=== PATIENT | female | born 1945 | race Caucasian/White ===

== ENCOUNTER → 2017-07-27 | Outpatient (CLI) | payer OTHER ==
[~2017-07-27] MED LIST: ADULT LOW DOSE81 MG PO; ADVAIR 250-501 EACH IH; ADVAIR HFA 1112 UNIT INH; ALDACTONE25 MG PO; APAP500 PO; CIPRO250 M1 PO; COUMADIN 2 MG TA2 M1 PO; COUMADIN 4 MG TA4 M1 PO; DIOVAN320 MG PO; DUONEB 2.5-0.5 M3 ML; FENOFIBRATE134 MG PO; FENOFIBRATE160 MG PO; FUROSEMIDE 40 M40 M1 PO; K-DUR 20 MEQ T20 MEQ PO; LANOXIN 0.250.25 MG PO; PREDNISONE 2.52.5 M1 PO; PREDNISONE OR; PROAIR HFA8.5 GM IH; SINGULAIR 10 MG10 M1 PO; THEOPHYLLINE; THEOPHYLLINE E200 M1 PO; TOPROL XL25 MG PO; TYLENOL EX-STR500 M2 PO; VICODIN 5-5001 EACH PO
== END ==
LOC: PET 09:16
DX: R91.1 Solitary pulmonary nodule (principal); R59.0 Localized enlarged lymph nodes

== ENCOUNTER → 2017-11-12 | Outpatient (CLI) | payer OTHER ==
[~2017-11-12] MED LIST changes: +CENTRUM SILVER1 EAC4 PO; +LEVAQUIN 750 M750 MG PO; +LEVOXYL75 MCG PO; +PREDNISONE 10 M10 MG PO; -PREDNISONE OR; +PROBIOTIC1 EAC1 PO; +PROTONIX 20 MG20 M1 PO; +SPIRIVA INH
== END ==
LOC: CAT 11:17
DX: R91.8 Other nonspecific abnormal finding of lung field (principal)

== ENCOUNTER 2018-02-11 13:21 | Inpatient (IN) | payer OTHER ==
[~2018-02-11] VITALS: Ht 154.9 cm; Wt 64.0 kg
--- NOTE | ~2018-02-11 | HC ---
[facility] [place] [address] CONSULTATION Name: WALT CORLEY Room #: 453-P ADM IN M.R.#: [id number] Admission: 02/11/18 Attend Phys: Víctor Tanner MD Discharge: Date of : 41 Report #: [id number] THIS REPORT FOR: //name// CC: DR EILEEN Chen REASON FOR CONSULTATION: Thrombocytopenia. HISTORY OF PRESENT ILLNESS: The patient is a very pleasant 73-year-old female. originally from [place], lives here in [place] for the last 35-40 years, who last week was being treated for exacerbation of COPD, maybe, with either cefdinir or ciprofloxacin, had some diarrhea. I believe yesterday or 2 days ago, she was in her doctor's office, her right leg was thought to be more red and swollen. They were worried about DVT. Here, her ultrasound was negative for clot. Her CT angiogram was negative for clot, though it did show decrease in size of previously noted pulmonary nodules, and she was begun on antibiotics. Since then, her thinks her leg looked slightly better. We have noted that her platelets were 107 yesterday. She has not been aware of previous knowledge of having low platelet counts. The patient has had some chills, did have the diarrhea, did have the shortness of air. Denies any definite fever, any headache other than she had one last night. No mouth sores. No chest pain, no new leg swelling except for the right leg. Did have some slight abdominal pain due to gaseousness. She feels like the diarrhea may have resolved, was not aware of any blood in the urine or stool. No dysuria. She is not aware of any lumps or bumps in terms of lymphadenopathy or masses. Her family, she says they are healthy. PAST MEDICAL HISTORY: Past history is notable for history of hypertension, skin melanoma in 1991 in the forehead, broken arm at age 28 on the right. CHF with an EF of 40% and a pacemaker in place with mitral valve insufficiency. Also, history of asthma, DVT in the right leg about 10-12 years ago. History of tobacco use, history of COPD, history of cataracts, history of carpal tunnel surgery in the past I believe. History of pacemaker for syncopal episode and bradycardia, left bundle branch block in . History of right knee replacement, left hip replacement. FAMILY HISTORY: Mother had breast cancer when she is 80. It sounds like, maybe, a sibling may have had some psychiatric issues. She has 3 children, alive and well. SOCIAL HISTORY: She is retired. 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 Her is in attendance. She has a history of smoking. No significant alcohol, no street drugs. The patient's [facility] [address] [place] [address] CONSULTATION Name: WALT CORLEY Room #: 453-P [facility] IN M.R.#: [id number] Admission: 02/11/18 Attend Phys: Víctor Tanner MD Discharge: Date of : 41 Report #: [id number] hobby is guarding. The patient reports current daily smoker. MEDICATIONS: At this time include Warfarin 2 mg Sunday, Sunday, Sunday. Lactobacillus acidophilus 1 cap daily, multivitamins with minerals 1 tab daily, prednisone 10 daily, theophylline 200 mg daily, spironolactone 25 daily, furosemide 40 daily, budesonide 0.5 mg respiratory therapy b.i.d., pantoprazole 20 daily, levothyroxine 75 mcg daily, fenofibrate 160 mg daily, metoprolol 25 b.i.d. Montelukast 10 mg at bedtime. Digoxin 0.125 at bedtime. Warfarin 4 mg on Sunday, Sunday, Sunday, . Ipratropium, albuterol inhaler q.i.d., hydrocodone p.r.n., Tylenol p.r.n., levofloxacin daily, vancomycin. LABORATORY DATA: This admit includes BUN of 19, creatinine of 0.9. Liver functions normal including AST, ALT, total bili. Albumin was 3.3. INR was 2.6, with a protime at 26, APTT 42.5, fibrinogen 548. D-dimer 0.66. White count 19.9, hemoglobin 15.6, MCV of 91, RDW of 16, platelet counts 107. Note that back in 2010, it was 172. Differential shows absolute neutrophil count yesterday of 18,000. Note that she had a hypercoag workup in 2010 that appeared to be unremarkable. UA not done this admit. RADIOLOGIC STUDIES: Include the ultrasound of the lower extremity, unilateral in the right, showing no signs or clot. CTA PE protocol synopsis shows nothing to demonstrate pulmonary embolism or dissection, does show the bilateral pulmonary nodules, which are suspicious for pulmonary malignancy, but have undergone PET evaluation and are slightly smaller than on CT from 3 months ago. PHYSICAL EXAMINATION: GENERAL: The patient appears her stated age. VITAL SIGNS: Height is 5 feet 1, which is 154.9 cm. Weight is 141 pounds, which is 63.96 kilograms. Blood pressure is 137/70, O2 sat 92%. on the left arm, respirations 16, pulse 83, temperature 97.7, afebrile. MOOD: She is pleasant and conversant. NEUROLOGIC: Face is symmetrical. Speech and thought pattern appear to be normal. LYMPHATICS: No enlarged lymph nodes in the supraclavicular, cervical, axillary or inguinal region. LUNGS: Slightly distant. There may be some soft rhonchi, but I do not hear very much. HEART: Appears regular rate. ABDOMEN: Slightly obese, slightly gassy, not really tender. EXTREMITIES: Without clubbing, cyanosis. Note the right arm has quite a few more ecchymosis, which may be from the combination of prednisone and past DVT. There also may be some slight petechiae. Left leg looks quite a bit different. ASSESSMENT AND PLAN: 1. Thrombocytopenia, suspect may be related to recent sepsis or antibiotic from last week. We will order platelet count for today and tomorrow and follow [facility] [address] [place] [address] CONSULTATION Name: WALT CORLEY Room #: 453-P ADM IN [facility].#: [id number] Admission: 02/11/18 Attend Phys: Víctor Tanner MD Discharge: Date of : 41 Report #: [id number] serially. D-dimer is slightly up likely related to underlying infection and also her anticoagulation. She does not look toxic at this time. We will continue monitoring. If further decline, would consider iron, B12, folate, thyroid levels as well as platelet antibodies. 2. Right leg cellulitis. Continue vancomycin and levofloxacin. The patient's thinks it looks better today. 3. History of right leg deep venous thrombosis 10 years ago, negative CTA angiogram. Continue Coumadin current anticoagulant. 4. Lung nodules. Defer to Dr. Obey Mast. They appear slightly smaller. 5. Chronic obstructive pulmonary disease exacerbation. Continue Singulair, Aerosols prednisone, theophylline. 6. Cardiomyopathy. Continue with defibrillator. Continues on digoxin. 7. History of melanoma, not recurrent. 8. Hypertension, metoprolol, Aldactone, furosemide. <ELECTRONICALLY SIGNED> By: Nilo Lazo MD 02/13/18 [id number] Nilo Lazo MD /nt
[~2018-02-11 13:21] MED LIST changes: -CENTRUM SILVER1 EAC4 PO; -LEVAQUIN 750 M750 MG PO; -LEVOXYL75 MCG PO; -PROBIOTIC1 EAC1 PO; -PROTONIX 20 MG20 M1 PO; -SPIRIVA INH
[2018-02-11 13:27] VITALS: BP 116/78
[2018-02-11] MEDS ORDERED: CENTRUM SILVER1 EAC4 PO (13:29)
[2018-02-11] MEDS ORDERED: LEVOXYL75 MCG PO (13:30)
[2018-02-11] MEDS ORDERED: SPIRIVA INH (13:31)
[2018-02-11 14:16] LABS: ABSOLUTE NEUTROPHILS 18.5 thou/uL (1.4-8.2); BASOPHILS 0.4 % (0.0-2.0); EOSINOPHILS 0.1 % (0.0-3.0); HEMATOCRIT 47.5 % (37.0-47.0); HEMOGLOBIN 15.6 gm/dL (12.0-15.0); LYMPHOCYTES 2.6 % (24.0-44.0); MCHC 32.9 g/dL (28.0-37.0); MONOCYTES 2.8 % (1.0-8.0); PLATELET COUNT 107 thou/uL (150-400); POLYS 94.1 % (36.0-66.0); RBC 5.22 mil/uL (4.20-5.00); WBC 19.6 thou/uL (4.0-11.0)
[2018-02-11 14:23] LABS: CALCIUM 9.6 mg/dL (8.5-10.1); CREATININE 0.9 mg/dL (0.6-1.0); POTASSIUM 4.1 mmol/L (3.5-5.1)
[2018-02-11 14:27] LABS: INR 2.6
[2018-02-11 14:28] LABS: ALBUMIN 3.3 g/dL (3.4-5.0); TOTAL BILIRUBIN 0.6 mg/dL (<0.1-1.0); TOTAL PROTEIN 6.9 g/dL (6.4-8.2)
[2018-02-11 15:08] LABS: D-DIMER 0.66 ug/mLFEU (0.19-0.50)
[2018-02-11 15:13] LABS: FIBRINOGEN 548.2 mg/dL (210-360)
[2018-02-11 16:17] VITALS: BP 116/78
[2018-02-11 20:00] VITALS: BP 129/72
[2018-02-12 05:09] VITALS: BP 123/82
[2018-02-12 07:23] VITALS: BP 135/70
[2018-02-12 09:49] LABS: ABSOLUTE NEUTROPHILS 10.2 thou/uL (1.4-8.2); BASOPHILS 0.4 % (0.0-2.0); EOSINOPHILS 1.3 % (0.0-3.0); HEMATOCRIT 46.2 % (37.0-47.0); HEMOGLOBIN 15.1 gm/dL (12.0-15.0); LYMPHOCYTES 6.1 % (24.0-44.0); MCH 30.1 pg (26.0-34.0); MCHC 32.8 g/dL (28.0-37.0); MCV 91.9 fL (80.0-100.0); MONOCYTES 4.1 % (1.0-8.0); PLATELET COUNT 108 thou/uL (150-400); POLYS 88.1 % (36.0-66.0); RBC 5.02 mil/uL (4.20-5.00); RDW 16.4 % (10.5-14.5); WBC 11.6 thou/uL (4.0-11.0)
[2018-02-12 15:24] VITALS: BP 113/72
[2018-02-12 20:31] VITALS: BP 140/79
[2018-02-13 00:35] VITALS: BP 141/82
[2018-02-13 03:59] VITALS: BP 144/74
[2018-02-13 06:11] LABS: ABSOLUTE NEUTROPHILS 6.3 thou/uL (1.4-8.2); BASOPHILS 0.5 % (0.0-2.0); EOSINOPHILS 2.6 % (0.0-3.0); HEMATOCRIT 41.3 % (37.0-47.0); HEMOGLOBIN 13.8 gm/dL (12.0-15.0); LYMPHOCYTES 12.8 % (24.0-44.0); MCH 30.2 pg (26.0-34.0); MCHC 33.4 g/dL (28.0-37.0); MCV 90.5 fL (80.0-100.0); MONOCYTES 6.8 % (1.0-8.0); PLATELET COUNT 118 thou/uL (150-400); POLYS 77.3 % (36.0-66.0); RBC 4.56 mil/uL (4.20-5.00); RDW 15.8 % (10.5-14.5); WBC 8.2 thou/uL (4.0-11.0)
[2018-02-13 06:26] LABS: INR 3.2; PROTIME 31.8 Seconds (9.3-11.4)
[2018-02-13 07:45] VITALS: BP 133/87
[2018-02-13] MEDS ORDERED: LEVAQUIN 750 M750 MG PO (11:46)
[2018-02-13] MEDS ORDERED: PROTONIX 20 MG20 M1 PO (11:46)
[2018-02-13] MEDS ORDERED: PROBIOTIC1 EAC1 PO (11:46)
[2018-02-13 16:10] VITALS: BP 113/75
[2018-02-13 16:31] VITALS: BP 113/75
== END 2018-02-13 17:00 | disposition home or self-care (01) | DRG 872 ==
LOC: ER 13:21 → EROBS 15:54 → 4W 15:54 → ENTRNSPT 02-13 16:48 → 4W 02-13 17:00
PROVIDERS: Internal Medicine; Internal Medicine Hematology & Oncology; Physician Assistant
DX: A41.9 Sepsis, unspecified organism (principal); L03.115 Cellulitis of right lower limb; J44.1 Chronic obstructive pulmonary disease with (acute) exacerbation; I42.9 Cardiomyopathy, unspecified; E46 Unspecified protein-calorie malnutrition; I50.9 Heart failure, unspecified; Z96.651 Presence of right artificial knee joint; Z96.642 Presence of left artificial hip joint; R91.1 Solitary pulmonary nodule; D69.6 Thrombocytopenia, unspecified; I11.0 Hypertensive heart disease with heart failure; F17.210 Nicotine dependence, cigarettes, uncomplicated; E03.9 Hypothyroidism, unspecified; Z68.26 Body mass index [BMI] 26.0-26.9, adult; Z86.718 Personal history of other venous thrombosis and embolism; Z95.0 Presence of cardiac pacemaker; Z88.0 Allergy status to penicillin; Z98.49 Cataract extraction status, unspecified eye; Z80.3 Family history of malignant neoplasm of breast
CPT/HCPCS: 10045

== ENCOUNTER → 2018-02-11 | Outpatient (CLI) | payer OTHER | LOC: ULTRA 10:48 | DX: M79.661 Pain in right lower leg (principal); M79.89 Other specified soft tissue disorders ==